=== PATIENT | male | born 1955 ===

== ENCOUNTER 2024-05-15 18:01 | Outpatient (REF) | payer MEDICARE, BC, SELFPAY ==
[2024-05-15 16:27] LABS: Anion Gap 8.3 mmol/L (3-11); BUN 13 mg/dL (7-18); CO2 28.7 mmol/L (21.0-32.0); Calcium 8.5 mg/dL (8.5-10.1); Chloride 107 mmol/L (98-107); Estimated GFR 81.47 (mL/min/1.73m2); Glucose 90 mg/dL (74-106); Potassium 3.7 mmol/L (3.5-5.1); Sodium 144 mmol/L (136-145)
== END 2024-05-15 18:02 | disposition home or self-care (01) ==
LOC: LBN 18:01
PROVIDERS: Visit Provider Physician Assistant Medical
DX: R60.0 Localized edema (principal)
CPT/HCPCS: 80048